=== PATIENT | male | born 1970 | race Caucasian/White ===

== ENCOUNTER 2024-12-21 06:50 | Emergency (ER) | payer BC, SELFPAY ==
--- NOTE | ~2024-12-21 | XR_ITS ---
EXAMINATION: XR SHOULDER, RIGHT CLINICAL INFORMATION: pain COMPARISON: None available. TECHNIQUE: AP external rotation, Grashey, scapular Y, and axillary views of the right shoulder. FINDINGS: Degenerative changes in the acromioclavicular joint. No acute cortical disruption or gross malalignment. No lytic or blastic lesions. XR/XR shoulder RT min 2V IMPRESSION: Degenerative changes, acromioclavicular joint. Electronically signed by: Kameron Harrell MD 12/21/2024 08:04 AM EDT
[2024-12-21 06:54] VITALS: BP 155/72; PULSE 63; RESP 20; TEMP 36.8; O2SAT 99; BMI 35.4
[2024-12-21 08:00] VITALS: BP 131/84; PULSE 62; RESP 18; TEMP 36.8; O2SAT 95
[2024-12-21] MEDS: Ketorolac Tromethamine 30 MG/ML VIAL IM (08:30)
[2024-12-21] MEDS: Acetaminophen 325 MG TABLET 650 MG PO (08:30)
--- NOTE | 2024-12-21 08:36 | ED.GENADULT ---
HPI - General Adult General Chief complaint: Upper Respiratory Symptoms Stated complaint: rotator cuff injury Time Seen by Provider: 12/21/24 07:55 Source: patient, RN notes reviewed and old records reviewed Mode of arrival: ambulatory History of Present Illness ED Provider: Ashlee Lucia PA-C HPI narrative: 54-year-old male no significant past medical history presenting to the ED complaining of right shoulder pain s/p mechanical slip and fall in back yard a few weeks ago. Denies symptoms prior to fall. Denies head trauma or LOC. states landed on right shoulder now with increasing pain with ROM. Admits to associated paresthesias down RUE initially which have improved. Denies fever, chills, weakness, numbness, neck/back pain Related Data Previous Rx's ?Medication ?Instructions ?Recorded acetaminophen 500 mg tablet 500 mg PO Q6H PRN fever or pain 12/21/24 (Tylenol Extra Strength) #14 tabs cyclobenzaprine 5 mg tablet 5 mg PO Q8H PRN pain (scale score 12/21/24 7-10) 5 days #14 tabs lidocaine 5 % topical patch 1 patch topical DAILY PRN pain #30 12/21/24 (Lidoderm) ea naproxen 500 mg tablet 500 mg PO BID PRN pain 10 days #20 12/21/24 tabs Allergies Allergy/AdvReac Type Severity Reaction Status Date / Time shellfish derived Allergy Anaphylaxis Verified 12/21/24 06:56 Review of Systems Review of Systems: Yes all other systems are reviewed and are negative Constitutional: Constitutional: Reports as per [facility] Past Medical History Attestation statement: The following information was validated with the patient. Source: old records reviewed Physical Exam ED Vital Signs: Vital Signs - 24 hr 12/21/24 06:54 12/21/24 08:00 12/21/24 09:04 Temperature 98.3 F 98.2 F 98.2 F Pulse Rate 63 62 62 Respiratory Rate 20 18 18 Blood Pressure 155/72 H 131/84 131/84 Pulse Oximetry 99 95 95 Oxygen Delivery Method Room Air Room Air Room Air BMI result Body Mass Index 35.4 Const General: cooperative, healthy appearing and no acute distress Orientation/consciousness: patient oriented x3 Limitations: no limitations HENMT Head: Yes normal to inspection and Yes atraumatic Ears: hearing grossly normal bilaterally General nose exam: Normal external nose present Face and sinus: Yes normal facial exam Eyes General: appearance normal, both eyes and all related structures EOM: EOMs intact bilaterally Neck Neck: Yes normal visual inspection and Yes no meningeal signs Resp Effort & Inspection: normal respiratory effort and no respiratory distress Cardio Rate: regular rate Back/Spine/Pelvis Other: No midline cervical/thoracic/lumbar spinous tenderness/step-off or deformity Skin Rashes: no rashes Wounds: no wounds Neuro General: patient oriented x3, tone normal and no meningeal signs Cranial nerves: Yes CN's II-XII intact bilaterally Gait exam (Neuro): Normal gait present Extrem Other: right shoulder without noted deformity. Diffusely tender to palpation. ROM intact with discomfort. No erythema/ warmth or crepitus. Neurovascularly intact distally. Strength intact. General: Yes normal to inspection Course Course Course Narrative: XR shoulder RT min 2V IMPRESSION: Degenerative changes, acromioclavicular joint. Results discussed with patient including worrisome signs and symptoms and strict return precautions, and when to return to the emergency department. They verbalized understanding and feel safe for discharge at this time. Medications Administered Discontinued Medications Generic Name Dose Route Start Last Admin Trade Name Freq PRN Reason Stop Dose Admin Acetaminophen 650 mg 12/21/24 08:25 12/21/24 08:30 Acetaminophen 325 Mg Tablet PO 12/21/24 08:26 650 mg ONCE ONE Administration Ketorolac Tromethamine 30 mg 12/21/24 08:25 12/21/24 08:30 Ketorolac Tromethamine 30 Mg/Ml Vial IM 12/21/24 08:26 30 mg ONCE ONE Administration Medical Decision Making Medical Decision Making [facility] Narrative: 54-year-old male no significant past medical history presenting to the ED complaining of right shoulder pain s/p mechanical slip and fall in back yard a few weeks ago. On exam vital signs stable, NAD, nontoxic appearing, physical exam as noted above. Concern for fracture vs strain/ sprain vs rotator cuff/tendon or ligamental injury. No evidence of septic joint. Unlikely ICH or cervical injury Plan: X-ray, IM Toradol, orthopedic referral/PCP follow-up Please refer to course for remaining clinical decision making, interpretation of labs/imaging results, and discussions with consultants and/or family members. Differential Diagnosis Differential Diagnoses: The differential diagnosis associated with the presentation includes As above Independent Interpretation I performed an independent interpretation of an: Plain X-Ray ( my interpretation: Appears unremarkable) Radiology Impression Discussion of test interpretation with radiology: I have reviewed the radiologist's reading. External Record Review External record reviewed: Inpatient record, Office record, Outpatient record, Prior outpatient labs, Prior outpatient radiology, Primary care record and Outside ED record Tests considered The following testing was considered but not selected: As above Prescription Management I considered prescription management with: Pain Medication Social Determinants Patient?s care significantly limited by Social Determinants of Health including: Other Social Determinant of Health Discharge Plan Discharge Clinical Impression: Acute shoulder pain Patient Disposition: Home, Self-Care Instructions: Shoulder Pain (ED) Additional Instructions: your x-ray shows degenerative / arthritic changes. No fracture. We recommended follow up with Orthopedics and your primary care doctor You may need an MRI Flexeril is a muscle relaxer, take at night as it makes you drowsy, do not drive, drink alcohol, or operate machinery while taking it Naproxen as an anti-inflammatory / pain medication, take with food Lidoderm patches are numbing patches, apply to painful area In addition take Tylenol at home If symptoms persist or worsen, pain becomes unbearable, you develop weakness return to the ED Prescriptions: New acetaminophen [Tylenol Extra Strength] 500 mg tablet 500 mg PO Q6H PRN (Reason: fever or pain) Qty: 14 0RF lidocaine [Lidoderm] 5 % adhesive patch,medicated 1 patch topical DAILY MDD remove after 12 hours PRN (Reason: pain) Qty: 30 0RF Rx Instructions: leave on most painful area for up to 12 hrs naproxen 500 mg tablet 500 mg PO BID PRN (Reason: pain) 10 Days Qty: 20 0RF cyclobenzaprine 5 mg tablet 5 mg PO Q8H PRN (Reason: pain (scale score 7-10)) 5 Days Qty: 14 0RF Referrals: [facility] [Provider Group] - 1 week Physician,Unknown J [Primary Care Provider] - Stand Alone Forms: Work/School Release Interventions: ED Discharge Assessment Last Done: 12/21/24 09:04 Discharge Date/Time: 12/21/24 09:05 Print Language: Spanish
[2024-12-21 09:04] VITALS: BP 131/84; PULSE 62; RESP 18; TEMP 36.8; O2SAT 95
== END 2024-12-21 09:05 | disposition home or self-care (01) ==
PROVIDERS: Emergency Provider Emergency Medicine
DX: M25.511 Pain in right shoulder (principal)
CPT/HCPCS: 73030; 96372; 99284; J1885

== ENCOUNTER → 2024-12-21 06:59 | Outpatient (BNV) | payer BC, SELFPAY | PROVIDERS: Emergency Provider Emergency Medicine; Visit Provider Radiology Diagnostic Radiology | DX: M19.011 Primary osteoarthritis, right shoulder (principal) | CPT/HCPCS: 73030 ==

== ENCOUNTER 2025-01-26 08:16 | Outpatient (AMB) | payer BC, SELFPAY ==
[2025-01-26 08:30] VITALS: BP 142/84; PULSE 60; RESP 16; TEMP 37.2; O2SAT 97; BMI 35.1
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
== END 2025-01-26 09:08 | disposition home or self-care (01) ==
DX: M25.511 Pain in right shoulder (principal); Z68.35 Body mass index [BMI] 35.0-35.9, adult; E66.9 Obesity, unspecified; Z12.11 Encounter for screening for malignant neoplasm of colon; Z12.12 Encounter for screening for malignant neoplasm of rectum

== ENCOUNTER → 2025-01-26 08:16 | Outpatient (BNVA) | payer BC, SELFPAY | DX: Z76.89 Persons encountering health services in other specified circumstances (principal); E66.9 Obesity, unspecified; Z68.35 Body mass index [BMI] 35.0-35.9, adult; M25.511 Pain in right shoulder | CPT/HCPCS: 96127 ==

== ENCOUNTER 2025-02-09 09:55 | Outpatient (AMB) | payer BC, SELFPAY ==
--- NOTE | 2025-02-09 10:06 | MHC.OFFVIS ---
Vital Signs 02/09/25 10:10 Height 5 ft 8 in Weight 230 lb BMI 35.0 Handedness Right Intake Visit Reasons: ER - Right shoulder pain Intake Note: Jeffry is a 54 year old right hand dominant male who presents today for a evaluation of his right shoulder pain, DOI 08/17/24. Patient reports a slip and fall in his back yard. He notices that his ROM is limited. Patient notices that his pain is worse with overhead reaching, lifting heavy items and he finds it difficult to reach is back. Patient reports that his pain has gotten better since he has done light duty at work. IMPRESSION: Degenerative changes, acromioclavicular joint. Allergies shellfish derived Allergy (Verified 02/09/25 10:09) Anaphylaxis HPI HPI ER - Right shoulder pain: Details: Mr. Etienne this is a 54-year-old male who presents to the office today for evaluation of a right shoulder injury that he sustained on 08/17/2024. Patient states that he fell backwards landing on the posterior aspect of the right shoulder. He was having pain up until about 3 weeks ago. He reports that with rest and light duty work restrictions his shoulder has drastically improved. On today's visit he is content with his progress since the injury. [facility] Surgical History Hx of hand surgery Family History Father Melanoma Social History Household Members: Spouse Housing: House Alcohol intake: never Patient Tobacco Use Status: Former Tobacco user Tobacco use type: Cigarette Years Smoked: 20; Quit in 2013 e-Cigarette/Vaping Use: Former Use Second Hand Smoke Exposure: No service: No Current occupational status: employed Current occupation: [employer] Cognitive needs: No Hearing needs: No Vision needs: No Review of Systems Const All systems reviewed & are unremarkable except as noted in HPI and below Physical Exam Vital Signs: BMI result Body Mass Index 35.0 Const General: cooperative, healthy appearing and no acute distress Resp Effort & Inspection: normal respiratory effort and able to speak in complete sentences Extrem Other: Right shoulder: Normal to inspection. No ecchymosis, erythema, or edema. Full shoulder ROM in all planes. Negative cross-body reach. Negative empty can. Negative drop arm. NVI. Assessment & Plan Assessment & Plan (1) Right shoulder pain: Code(s): M25.511 - Pain in right shoulder Category: Medical Qualifiers: Chronicity: acute Qualified Code(s): M25.511 - Pain in right shoulder Plan Mr. Etienne this is a 54-year-old male who presents to the office today for evaluation of a right shoulder injury that he sustained on 08/17/2024. Patient states that he fell backwards landing on the posterior aspect of the right shoulder. He was having pain up until about 3 weeks ago. He reports that with rest and light duty work restrictions his shoulder has drastically improved. On today's visit he is content with his progress since the injury. While the office today, we discussed the role of physical therapy. However the patient has full range of motion and is feeling much better over the past 3 weeks. Therefore this was deferred at this time. Should his symptoms return he will contact the office and I will place an order for physical therapy. Otherwise he will follow up PRN, sooner if needed. X-rays of the right shoulder which were obtained on 12/21/2024 were reviewed by me, Maritza Beltran PA-C, revealed AC joint osteoarthritis. No acute fracture or dislocation. Coding Level of Care Code New Pt Level 3 (84076) Diagnoses Acute pain of right shoulder M25.511 Chronicity: acute
[2025-02-09 10:10] VITALS: BMI 35.0
== END 2025-02-09 10:39 | disposition home or self-care (01) ==
LOC: HO.HOS 09:55
PROVIDERS: Visit Provider Physician Assistant
DX: M25.511 Pain in right shoulder (principal)
CPT/HCPCS: 99203